=== PATIENT | female | born 1945 | race Caucasian/White ===

== ENCOUNTER → 2016-10-09 | Outpatient (CLI) | payer BC ==
[~2016-10-09] VITALS: Ht 165.1 cm; Wt 87.1 kg
[~2016-10-09] MED LIST: ASPIRIN-LOW81 MG ORAL; ASPIRIN81 MG ORAL; CRESTOR10 M2 ORAL; FEMARA2.5 MG ORAL; HYDROCHLOROTH12.5 MG ORAL; LOSARTAN POTASS50 MG ORAL; METFORMIN HCL500 M1 ORAL; ZANTAC150 MG ORAL
[2016-10-09 14:54] VITALS: BP 150/81
--- NOTE | 2016-10-09 15:29 | GI Initial Consult Note ---
Ballard,Criselda José N.PTana 10/09/16 1529: History of Present Illness General Date patient seen: Oct 09, 2016 Time patient seen: 09:00 Reason for Consultation: REPEAT COLONOSCOPY Present Illness HPI 71 year female patient known to us from previously colonoscopy presents today for repeat colonoscopy for evaluation of colonic polyps. Pt currently has no GI symptoms. NAD. Last colonoscopy with findings as noted below. DATE OF PROCEDURE: 10/25/2013 ENDOSCOPIST: ANDRES PARRA MD SUMMARY OF FINDINGS: 1. Four colonic polyps removed, see above for details. 2. Diverticulosis. 3. Internal hemorrhoids. RECOMMENDATIONS: 1. Follow up biopsy results and treat accordingly. 2. Recommend repeat colonoscopy in three years. Home Meds Reported Medications Ranitidine Hcl* (ZANTAC*) 150 Mg Tablet, 150 MG ORAL PRN, #30 TAB 0 Refills 10/09/16 Losartan Potassium* (LOSARTAN POTASSIUM*) 50 Mg Tablet, 50 MG ORAL DAILY, TAB 10/09/16 Rosuvastatin Calcium* (CRESTOR*) 10 Mg Tablet, 5 MG ORAL DAILY, TAB 10/09/16 Metformin Hcl* (METFORMIN HCL*) 500 Mg Tablet, 1000 MG ORAL TWICE A DAY, TAB 10/09/16 Letrozole (Femara) 2.5 Mg Tab, 2.5 MG ORAL DAILY, #10 TAB 0 Refills 10/19/13 Discontinued Reported Medications Hydrochlorothiazide* (HYDROCHLOROTHIAZIDE*) 12.5 Mg Tablet, 12.5 MG ORAL DAILY, TAB 10/19/13 Med list reviewed/reconciled: Yes Allergies: Coded Allergies: CODEINE (Verified Allergy, Mild, 04/25/09) PROCAINE (Verified Allergy, Mild, 04/25/09) Patient History History Provided By: Patient, Medical Record [facility] Narrative GERD CAD RT breast CA >> RT Lumpectomy Pacemaker placed in 2008 Social History: Reports: smoking - quit Review of Systems All Other Systems: negative except mentioned in HPI Physical Exam Vital Signs Date Time Temp Pulse Resp B/P Pulse Ox O2 Delivery O2 Flow Rate FiO2 10/09/16 14:54 98.1 63 16 150/81 94 Sp02 EP Interpretation: reviewed General Appearance: well appearing, no apparent distress, alert Head: normocephalic EENT: normal ENT inspection Neck: normal inspection, full range of motion, supple Respiratory: normal breath sounds, no respiratory distress Cardiovascular: normal rate Gastrointestinal: normal inspection, non tender, soft Rectal: deferred Genitourinary: no CVA tenderness Musculoskeletal: normal inspection, back normal Neurologic: normal inspection, alert, oriented x3, responsive Psychiatric: normal inspection, judgement/insight normal, memory normal Skin: normal color, no rash, warm/dry Lymphatic: normal inspection, no adenopathy GI: Plan Problems: (1) Colonoscopy planned (2) GERD (gastroesophageal reflux disease) (3) Colonic polyp (4) CAD (coronary artery disease) (5) Breast CA (6) Pacemaker Plan prior auth required for repeat colonoscopy given history of colonic polyps, will contact patient to schedule date - CLD and SUPREP instructions given and acknowledged. - pt to hold ASA 162 one day prior to procedure. cont zantac prn Seen with Dr. Parra. ANDRES PARRA 10/10/16 7768: History of Present Illness Present Illness Home Meds Reported Medications Ranitidine Hcl* (ZANTAC*) 150 Mg Tablet, 150 MG ORAL PRN, #30 TAB 0 Refills 10/09/16 Losartan Potassium* (LOSARTAN POTASSIUM*) 50 Mg Tablet, 50 MG ORAL DAILY, TAB 10/09/16 Rosuvastatin Calcium* (CRESTOR*) 10 Mg Tablet, 5 MG ORAL DAILY, TAB 10/09/16 Metformin Hcl* (METFORMIN HCL*) 500 Mg Tablet, 1000 MG ORAL TWICE A DAY, TAB 10/09/16 Letrozole (Femara) 2.5 Mg Tab, 2.5 MG ORAL DAILY, #10 TAB 0 Refills 10/19/13 Discontinued Reported Medications Hydrochlorothiazide* (HYDROCHLOROTHIAZIDE*) 12.5 Mg Tablet, 12.5 MG ORAL DAILY, TAB 10/19/13 Allergies: Coded Allergies: CODEINE (Verified Allergy, Mild, 04/25/09) PROCAINE (Verified Allergy, Mild, 04/25/09) Patient History Social History Narrative The patient was seen and examined at bedside and all new and available data was reviewed in the patients chart. I agree with the above findings, impression and plan. (Patient seen earlier today. Signature stamp does not reflect patient encounter time.). -Misty Chan MDh José N.PTana Oct 09, 2016 15:29 ANDRES PARRA Oct 10, 2016 15:58
== END | disposition home or self-care (01) ==
LOC: PAN 12:51
DX: K21.9 Gastro-esophageal reflux disease without esophagitis (principal); K63.5 Polyp of colon; I25.10 Atherosclerotic heart disease of native coronary artery without angina pectoris; Z85.3 Personal history of malignant neoplasm of breast; Z95.0 Presence of cardiac pacemaker; Z88.6 Allergy status to analgesic agent; K64.8 Other hemorrhoids; K57.90 Diverticulosis of intestine, part unspecified, without perforation or abscess without bleeding
CPT/HCPCS: 99201

== ENCOUNTER → 2017-01-03 | Day surgery (SDC) | payer BC ==
[2017-01-03] VITALS (7 sets, daily range): BP systolic 117–132; BP diastolic 62–71
[~2017-01-03] VITALS: Ht 165.1 cm; Wt 84.4 kg
[~2017-01-03] MED LIST changes: +Atropine Inj 1mg/10ml Syr IV PRN; +DiphenhydrAMINE 50mg/ml Inj IVP PRN; +Ketorolac 30mg Inj IV PRN; +Ketorolac 60mg Inj IV PRN; +LORazepam Inj 2mg/ml 1ml IV PRN; +LR 1000ml 1,000 ML IVLG SCH; +Labetalol 5mg/ml 20ml vial IV PRN; +Meperidine 25mg/ml Inj IV PRN; +Metoclopramide 10mg/2ml Inj IVP PRN; +Midazolam 2mg/2ml Inj IVP PRN; +fentaNYL 100 mcg/2 mL IV PRN
[2017-01-03 07:35] LABS: THYROID STIMULATING HORMONE 1.59 uIU/mL (0.300-4.500)
--- NOTE | 2017-01-03 08:04 | Pre-Procedure Note/Attestation ---
Pre-Procedure Note/Attestation Complete Prior to Procedure Planned Procedure: not applicable Procedure Narrative: colonoscopy Indications for Procedure Pre-Operative Diagnosis: screening Attestation I attest that I discussed the nature of the procedure; its benefits; risks and complications; and alternatives (and the risks and benefits of such alternatives ), prior to the procedure, with the patient (or the patient's legal in store marketing representative). I attest that, if there was a reasonable possibility of needing a blood transfusion, the patient (or the patient's legal in store marketing representative) was given the [facility] standardized written summary, pursuant to the [employer] Blood Safety Act ([place] Health and Safety Code # 1645, as amended). I attest that I re-evaluated the patient just prior to the surgery and that there has been no change in the patient's H&P, except as documented below: ANDRES BARBA Jan 03, 2017 08:04
--- NOTE | 2017-01-03 08:05 | Short Stay Surgery H&P ---
History of Present Illness History of Present Illness Chief Complaint screening colonoscopy HPI Chio Funes is a 71 year old female who was admitted on for Colon Polyps Patient History Allergies: Coded Allergies: CODEINE (Verified Allergy, Mild, 04/25/09) PROCAINE (Verified Allergy, Mild, 04/25/09) PAST MEDICAL HISTORY: (1) Colonic polyp (2) CAD (coronary artery disease) (3) GERD (gastroesophageal reflux disease) (4) Pacemaker (5) Breast CA Past Surgeries: Social History: Medication History Scheduled Aspirin (Aspirin EC), 162 MG ORAL DAILY, (Reported) Letrozole (Femara), 2.5 MG ORAL DAILY, (Reported) Losartan Potassium* (Losartan Potassium*), 50 MG ORAL DAILY, (Reported) Metformin Hcl* (Metformin Hcl*), 500 MG ORAL TWICE A DAY, (Reported) Ranitidine Hcl* (Zantac*), 150 MG ORAL PRN, (Reported) Rosuvastatin Calcium* (Crestor*), 5 MG ORAL DAILY, (Reported) Review of Systems Cardiovascular: Reports: no symptoms Respiratory: Reports: no symptoms Skeletal: Reports: no symptoms Gastrointestinal: Reports: no symptoms Genitourinary: Reports: no symptoms Neurologic: Reports: no symptoms Endocrine: Reports: no symptoms Hematologic: Reports: no symptoms Physical Exam Vital Signs Last Vital Signs Date Time Temp Pulse Resp B/P Pulse Ox O2 Delivery O2 Flow Rate FiO2 01/03/17 06:17 97.3 63 20 132/71 95 Room Air Labs Laboratory Tests Test 01/03/17 06:50 Carcinoembryonic Antigen 3.4 ng/mL H CA 19-9 Antigen 1.01 U/mL (< 37) Thyroid Stimulating Hormone (TSH) 1.590 uIU/mL (0.300-4.500) Free Thyroxine 1.51 ng/dL (0.86-1.85) Skin: normal HENT: normal Heart: normal Lungs: normal Abdomen: normal Extremities: normal Plan Plan of Care colonoscopy Final Diagnosis: Attestation Are the patient's medical conditions optimized for surgery? Attestation Response: yes ANDRES BARBA Jan 03, 2017 08:05
--- NOTE | 2017-01-03 08:17 | Anethesia Preoperative Eval ---
Anesthesia Pre-op PMH/ROS General Date of Evaluation: Jan 03, 2017 Time of Evaluation: 07:51 Anesthesiologist: Dilcia ASA Score: ASA 3 Mallampati Score Class I : Soft palate, uvula, fauces, pillars visible Class II: Soft palate, uvula, fauces visible Class III: Soft palate, base of uvula visible Class IV: Only hard plate visible Mallampati Classification: Class III Surgeon: Fidel Diagnosis: Abd Pain Surgical Procedure: Colonoscopy Anesthesia History: none Social History: smoking Family History: no anesthesia problems Allergies: Coded Allergies: CODEINE (Verified Allergy, Mild, 04/25/09) PROCAINE (Verified Allergy, Mild, 04/25/09) Medications: see eMAR Past Medical History Cardiovascular: Reports: CAD, HTN, arrhythmia - acemaker, other - HL Pulmonary: Reports: other - moker Gastrointestinal/Genitourinary: Reports: GERD, other - Colon Polyps Endocrine: Reports: DM PSxH Narrative: Multip Coloscopies, R Breast SX Anesthesia Pre-op Phys. Exam Physician Exam Last Vital Signs Date Time Temp Pulse Resp B/P Pulse Ox O2 Delivery O2 Flow Rate FiO2 01/03/17 06:17 97.3 63 20 132/71 95 Room Air Constitutional: NAD Neurologic: CN 2-12 intact Cardiovascular: RRR Respiratory: CTA Gastrointestinal: S/NT/ND Airway Exam Mallampati Score: Class III MO: limited ROM: limited Teeth: intact Anesthesia Pre-op A/P Labs Chemistry Test 01/03/17 06:50 Carcinoembryonic Antigen 3.4 ng/mL H CA 19-9 Antigen 1.01 U/mL (< 37) Thyroid Stimulating Hormone (TSH) 1.590 uIU/mL (0.300-4.500) Free Thyroxine 1.51 ng/dL (0.86-1.85) Risk Assessment & Plan Assessment: ASA 3 Plan: GA Status Change Before Surgery: Oj Henry MD Jan 03, 2017 08:17
--- NOTE | 2017-01-03 08:19 | Immediate Post-Op Evaluation ---
Immediate Post-Op Evalulation Immediate Post-Op Evalulation Procedure: Colonoscopy Date of Evaluation: Jan 03, 2017 Time of Evaluation: 08:44 IV Fluids: 600 LR Blood Products: 0 Estimated Blood Loss: 1 Urinary Output: 0 Blood Pressure Systolic: 123 Blood Pressure Diastolic: 63 Pulse Rate: 60 Respiratory Rate: 16 O2 Sat by Pulse Oximetry: 96 Temperature (Fahrenheit): 97.1 Pain Score (1-10): 2 Nausea: No Vomiting: No Complications 0 Patient Status: awake, reacts, patent, none Hydration Status: adequate Oj Ha MD Jan 03, 2017 08:19
--- NOTE | 2017-01-03 08:20 | 48 Hour Post Anesthesia Eval ---
Post Anesthesia Evaluation Procedure: Colonoscopy Date of Evaluation: Jan 03, 2017 Time of Evaluation: 10:53 Blood Pressure Systolic: 146 0: 78 Pulse Rate: 60 Respiratory Rate: 16 Temperature (Fahrenheit): 98.2 O2 Sat by Pulse Oximetry: 97 Airway: patent Nausea: No Vomiting: No Pain Intensity: 0 Hydration Status: adequate Cardiopulmonary Status: Stable Mental Status/LOC: patient returned to baseline Follow-up Care/Observations: 0 Post-Anesthesia Complications: 0 Follow-up care needed: ready to discharge Oj Ha MD Jan 03, 2017 08:20
--- NOTE | 2017-01-03 08:29 | Endoscopy Procedure Note ---
Endoscopy Procedure Note Indication for Procedure: screening Procedures Performed: colonoscopy Operative Findings/Diagnosis: one polyp Specimen: yes Pt Tolerated Procedure Well: Yes Estimated Blood Loss: none Anesthesiologist: guanako Anesthesia: MAC Implant(s) used?: No 50 yrs or older w/o bx or poly: No 10yrs. F/U not recommended: Yes If not recommended, why?: Above average risk 10 yrs. F/U needed: Yes 18 years or older w/prev. colo: Yes <3yrs. since last colonoscopy: No ANDRES BARBA Jan 03, 2017 08:29
--- NOTE | 2017-01-03 16:38 | Procedure Note ---
DATE OF PROCEDURE: 01/03/2017 SURGEON: Bola Parra M.D. PROCEDURE: Colonoscopy with biopsy. ANESTHESIOLOGIST: Oj Ha M.D. INSTRUMENT: Olympus adult flexible colonoscope. INDICATION: 1. History of colonic polyps. 2. Screening colonoscopy. REASON FOR PROCEDURE: The procedure, risks, benefits, and possible consequences, including hemorrhage, aspiration, perforation and infection, and alternative treatments, were explained to the patient/legal guardian by Dr. Bola Parra and the patient/legal guardian understood and accepted these risks. DESCRIPTION OF PROCEDURE: After informed consent was obtained and the patient was adequately sedated, first rectal examination was performed, which was normal. Then, the scope was advanced from the rectum into the cecum documented by appendiceal orifice, ileocecal valve, and right upper quadrant palpation. Quality of prep overall was good. The patient has significant diverticulosis throughout the colon. There was one polyp in the transverse colon, measured roughly about 4 mm. This polyp was removed with the cold biopsy forceps technique. Retroflexion of rectum showed evidence of internal hemorrhoids. SUMMARY OF FINDINGS: 1. One colonic polyp removed, see above for details. 2. Internal hemorrhoids. 3. Significant diverticulosis. RECOMMENDATIONS: 1. Follow up biopsy results and treat accordingly. 2. Recommend repeat colonoscopy in five years. Bola Parra M.D. DR: DARIN JOB#: [id number] CC:
--- NOTE | 2017-01-08 16:23 | Cardiology Report ---
APPROVED REPORT EKG Measurement Heart [id number] [place] [id number] Sinus rhythm with 1st degree AV block Otherwise normal ECG
== END | disposition home or self-care (01) ==
LOC: GAS 05:34
DX: Z12.11 Encounter for screening for malignant neoplasm of colon (principal); Z86.010 Personal history of colon polyps; D12.3 Benign neoplasm of transverse colon; K64.8 Other hemorrhoids; K57.30 Diverticulosis of large intestine without perforation or abscess without bleeding; I25.10 Atherosclerotic heart disease of native coronary artery without angina pectoris; K21.9 Gastro-esophageal reflux disease without esophagitis; E11.9 Type 2 diabetes mellitus without complications; I10 Essential (primary) hypertension; E78.5 Hyperlipidemia, unspecified; F17.200 Nicotine dependence, unspecified, uncomplicated; Z85.3 Personal history of malignant neoplasm of breast; Z95.0 Presence of cardiac pacemaker; Z79.84 Long term (current) use of oral hypoglycemic drugs; Z79.82 Long term (current) use of aspirin; Z88.4 Allergy status to anesthetic agent; Z88.5 Allergy status to narcotic agent
CPT/HCPCS: 36415; 82378; 82962; 84439; 84443; 86301; 93005; 94003; 94150

== ENCOUNTER 2017-01-29 12:52 | Outpatient (CLI) | payer BC ==
[~2017-01-29 12:52] MED LIST changes: -Atropine Inj 1mg/10ml Syr IV PRN; -DiphenhydrAMINE 50mg/ml Inj IVP PRN; -Ketorolac 30mg Inj IV PRN; -Ketorolac 60mg Inj IV PRN; -LORazepam Inj 2mg/ml 1ml IV PRN; -LR 1000ml 1,000 ML IVLG SCH; -Labetalol 5mg/ml 20ml vial IV PRN; -Meperidine 25mg/ml Inj IV PRN; -Metoclopramide 10mg/2ml Inj IVP PRN; -Midazolam 2mg/2ml Inj IVP PRN; -fentaNYL 100 mcg/2 mL IV PRN
--- NOTE | 2017-01-29 14:00 | GI Progress Note ---
Assessment/Plan Problems: (1) GERD (gastroesophageal reflux disease) ICD Codes: K21.9 - Gastro-esophageal reflux disease without esophagitis SNOMED: 754654219 (2) CAD (coronary artery disease) ICD Codes: I25.10 - Atherosclerotic heart disease of [place] coronary artery without angina pectoris SNOMED: 04510644 (3) Colonic polyp ICD Codes: K63.5 - Polyp of colon SNOMED: 93871651 Status: stable Status Narrative Discussed with Dr. Parra. Assessment/Plan RECOMMENDATIONS: 1. Follow up biopsy results and treat accordingly. 2. Recommend repeat colonoscopy in five years. 3. RTC PRN Subjective Gastrointestinal/Abdominal: Reports: no symptoms Objective T 97.5 BP 156/85 P 59 95 RA Denies weight loss General Appearance: no apparent distress, alert Cardiovascular: normal rate Respiratory/Chest: normal breath sounds, no respiratory distress Abdominal Exam: normal bowel sounds, non tender, soft Extremities: normal range of motion Objective DATE OF PROCEDURE: 01/03/2017 SURGEON: Bola Parra M.D. INDICATION: 1. History of colonic polyps. 2. Screening colonoscopy. SUMMARY OF FINDINGS: 1. One colonic polyp removed, see above for details. 2. Internal hemorrhoids. 3. Significant diverticulosis. Criselda Ballard N.P. January 29, 2017 14:00
[2017-01-29 14:20] VITALS: BP 156/85
== END 2017-01-29 15:00 | disposition home or self-care (01) ==
LOC: PAN 12:52
DX: K21.9 Gastro-esophageal reflux disease without esophagitis (principal); I25.10 Atherosclerotic heart disease of native coronary artery without angina pectoris; K63.5 Polyp of colon
CPT/HCPCS: 99211

== ENCOUNTER 2020-11-13 12:37 | Outpatient (CLI) | payer BC ==
[~2020-11-13] VITALS: Ht 165.1 cm; Wt 77.1 kg
[2020-11-13 13:00] VITALS: BP 171/86
[2020-11-13] MEDS ORDERED: METFORMIN HCL500 M1 ORAL (13:03)
[2020-11-13] MEDS ORDERED: LOSARTAN POTASS25 MG ORAL (13:03)
--- NOTE | 2020-11-15 09:29 | Consultation ---
DATE OF CONSULTATION: 11/13/2020 CHIEF COMPLAINT: Constipation, GERD, rectal bleeding, nausea. HISTORY OF PRESENT ILLNESS: This is a very pleasant 75-year-old female working at [employer]. The patient has history of diabetes, history of colonic polyps, gastritis, GERD admitted to our office for followup and complained of the new onset of constipation, GERD, and rectal bleeding. PAST MEDICAL HISTORY: 1. Diabetes. 2. Hypercholesteremia. 3. History of pacemaker placement. 4. History of colonic polyp. 5. Gastritis. 6. History of breast cancer. 7. History of diverticulosis. 8. Coronary artery disease. PAST SURGICAL HISTORY: The patient has history of pacemaker placement, history of right breast mastectomy. ALLERGIES: To codeine and . MEDICATIONS: Please see medication reconciliation list. SOCIAL HISTORY: The patient denies any tobacco, alcohol, or drug use. FAMILY HISTORY: Noncontributory. REVIEW OF SYSTEMS: Review of systems was positive as dictated in HPI. PHYSICAL EXAMINATION: VITAL SIGNS: Temperature 97, blood pressure 110/86, pulse 60, respirations 20. HEENT: Normocephalic and atraumatic. Sclerae anicteric. NECK: Supple. No evidence of obvious lymphadenopathy. CARDIOVASCULAR: The patient evidence of pacemaker in the left upper chest. Regular rate and rhythm. Plus S1 and S2. LUNGS: Decreased breath sounds bilaterally based on supine exam. ABDOMEN: Soft and nontender. No rebound. No guarding. No peritoneal sign. EXTREMITIES: No cyanosis, no clubbing, no edema. ASSESSMENT AND PLAN: This is a 75-year-old female with new onset of constipation, rectal bleeding, complained of GERD and nausea, prior history of colonic polyps. The patient would benefit from endoscopy and colonoscopy for evaluation of above symptoms. The patient was given instruction for both. Prep was explained to her. Plan to schedule as soon as authorization is obtained. Bola Parra M.D. DR: [place] JOB#: [id number] CC:
== END 2020-11-13 14:37 | disposition home or self-care (01) ==
LOC: PAN 12:37
DX: K59.00 Constipation, unspecified (principal); K21.9 Gastro-esophageal reflux disease without esophagitis; K62.5 Hemorrhage of anus and rectum; R11.0 Nausea; E11.9 Type 2 diabetes mellitus without complications; E78.00 Pure hypercholesterolemia, unspecified; Z95.0 Presence of cardiac pacemaker; Z86.010 Personal history of colon polyps; Z85.3 Personal history of malignant neoplasm of breast; Z88.6 Allergy status to analgesic agent
CPT/HCPCS: 99212

== ENCOUNTER 2020-11-29 07:59 | Day surgery (SDC) | payer BC ==
[2020-11-29] VITALS (8 sets, daily range): BP systolic 141–158; BP diastolic 68–88
[~2020-11-29] VITALS: Ht 163.8 cm; Wt 74.8 kg
[~2020-11-29 07:59] MED LIST changes: +FAMOTIDINE20 MG ORAL; +LOSARTAN POTASS25 MG ORAL
[2020-11-29] MEDS ORDERED: LR 1000ml 1,000 ML IVLG SCH ×2 (08:00→09:45)
--- NOTE | 2020-11-29 09:22 | Pre-Procedure Note/Attestation ---
Pre-Procedure Note/Attestation Complete Prior to Procedure Planned Procedure: not applicable Procedure Narrative: esophagogastroduodenoscopy and colonoscopy Indications for Procedure Pre-Operative Diagnosis: GERD screening colon Attestation I attest that I discussed the nature of the procedure; its benefits; risks and complications; and alternatives (and the risks and benefits of such alt ernatives), prior to the procedure, with the patient (or the patient's legal technical account representative). I attest that, if there was a reasonable possibility of needing a blood transfusion, the patient (or the patient's legal technical account representative) was given the [facility] standardized written summary, pursuant to the [employer] [place] Blood Safety Act ([place] Health and Safety Code # 1645, as amended). I attest that I re-evaluated the patient just prior to the surgery and that there has been no change in the patient's H&P, except as documented below: Bola Parra MD Nov 29, 2020 09:22
--- NOTE | 2020-11-29 09:22 | Short Stay Surgery H&P ---
History of Present Illness History of Present Illness Chief Complaint see office note HPI Chio Funes is a 75 year old female who was admitted on for Polyps,Gerd Patient History Allergies: Coded Allergies: PROCAINE (Verified Allergy, Severe, rash, 11/27/20) CODEINE (Verified Allergy, Intermediate, rash, 11/27/20) Medication History Scheduled Aspirin (Aspirin EC), 162 MG ORAL DAILY, (Reported) Famotidine* (Pepcid 20mg tablet*), 10 MG ORAL NEEDED, (Reported) Letrozole (Femara), 2.5 MG ORAL DAILY, (Reported) Losartan Potassium* (Losartan Potassium*), 12.5 MG ORAL DAILY, (Reported) Metformin Hcl* (Metformin Hcl*), 1,000 MG ORAL DAILY, (Reported) Rosuvastatin Calcium* (Crestor*), 10 MG ORAL DAILY, (Reported) Discontinued Medications Ranitidine Hcl* (Zantac*), 150 MG ORAL PRN, (Reported) Discontinued Reason: Pt stopped taking med Physical Exam Vital Signs Last Vital Signs Date Time Temp Pulse Resp B/P (MAP) Pulse Ox O2 Delivery O2 Flow Rate FiO2 11/29/20 08:25 Room Air 11/29/20 08:25 98.2 66 18 141/72 100 Plan Attestation Are the patient's medical conditions optimized for surgery? Bola Parra MD Nov 29, 2020 09:22
--- NOTE | 2020-11-29 09:44 | Anethesia Preoperative Eval ---
Anesthesia Pre-op PMH/ROS General Date of Evaluation: Nov 29, 2020 Time of Evaluation: 09:49 Anesthesiologist: Dilcia ASA Score: ASA 3 Mallampati Score Class I : Soft palate, uvula, fauces, pillars visible Class II: Soft palate, uvula, fauces visible Class III: Soft palate, base of uvula visible Class IV: Only hard plate visible Mallampati Classification: Class III Surgeon: Fidel Diagnosis: Abd Pain Surgical Procedure: EGD/Colonoscopy Anesthesia History: none Social History: smoking Family History: no anesthesia problems Allergies: Coded Allergies: PROCAINE (Verified Allergy, Severe, rash, 11/27/20) CODEINE (Verified Allergy, Intermediate, rash, 11/27/20) Medications: see eMAR Patient NPO?: Yes Past Medical History Cardiovascular: Reports: HTN, CAD, arrhythmia - Pacemaker, other - HL Gastrointestinal/Genitourinary: Reports: GERD, other - Diverticulosis Endocrine: Reports: DM Hematology/Immune: Reports: other - R Breast CA Other: obesity - BMI 32 PSxH Narrative: R Breast Sx Anesthesia Pre-op Phys. Exam Physician Exam Last Vital Signs Date Time Temp Pulse Resp B/P (MAP) Pulse Ox O2 Delivery O2 Flow Rate FiO2 11/29/20 08:25 Room Air 11/29/20 08:25 98.2 66 18 141/72 100 Constitutional: NAD Neurologic: CN 2-12 intact Cardiovascular: RRR Respiratory: CTA Gastrointestinal: S/NT/ND Airway Exam Mallampati Score: Class III MO: limited ROM: limited Teeth: missing Anesthesia Pre-op A/P Risk Assessment & Plan Assessment: ASA 3 Plan: TIVA Status Change Before Surgery: Oj Henry MD Nov 29, 2020 09:44
[2020-11-29] MEDS ORDERED: Meperidine 25mg/1ml Inj (FOR RIGORS ONLY) IV PRN (09:45)
[2020-11-29] MEDS ORDERED: Atropine Sulfate 0.4mg/ml inj IVP PRN (09:45)
[2020-11-29] MEDS ORDERED: Midazolam 2mg/2ml Inj IVP PRN (09:45)
[2020-11-29] MEDS ORDERED: LORazepam Inj 2mg/ml 1ml IV PRN (09:45)
[2020-11-29] MEDS ORDERED: Metoclopramide 10mg/2ml Inj IVP PRN (09:45)
[2020-11-29] MEDS ORDERED: Labetalol 5mg/ml 20ml vial IV PRN (09:45)
[2020-11-29] MEDS ORDERED: DiphenhydrAMINE 50mg/ml Inj IVP PRN (09:45)
[2020-11-29] MEDS ORDERED: fentaNYL 100 mcg/2 mL IV PRN (09:45)
[2020-11-29] MEDS ORDERED: Ketorolac 30mg Inj IV PRN ×2 (09:45)
--- NOTE | 2020-11-29 09:45 | 48 Hour Post Anesthesia Eval ---
Post Anesthesia Evaluation Procedure: EGD/Colonoscopy Date of Evaluation: Nov 29, 2020 Time of Evaluation: 13:12 Blood Pressure Systolic: 162 0: 89 Pulse Rate: 64 Respiratory Rate: 18 Temperature (Fahrenheit): 98 O2 Sat by Pulse Oximetry: 97 Airway: patent Nausea: No Vomiting: No Pain Intensity: 1 Hydration Status: adequate Cardiopulmonary Status: Stable Mental Status/LOC: patient returned to baseline Follow-up Care/Observations: 0 Post-Anesthesia Complications: 0 Follow-up care needed: ready to discharge Oj Ha MD Nov 29, 2020 09:45
--- NOTE | 2020-11-29 09:45 | Immediate Post-Op Evaluation ---
Immediate Post-Op Evalulation Immediate Post-Op Evalulation Procedure: EGD/Colonoscopy Date of Evaluation: Nov 29, 2020 Time of Evaluation: 10:48 IV Fluids: 700 LR Blood Products: 0 Estimated Blood Loss: 1 Urinary Output: 0 Blood Pressure Systolic: 153 Blood Pressure Diastolic: 73 Pulse Rate: 66 Respiratory Rate: 16 O2 Sat by Pulse Oximetry: 99 Temperature (Fahrenheit): 97.5 Pain Score (1-10): 1 Nausea: No Vomiting: No Complications 0 Patient Status: awake, reacts, patent, none Hydration Status: adequate Oj Ha MD Nov 29, 2020 09:45
--- NOTE | 2020-11-29 09:53 | Endoscopy Procedure Note ---
Endoscopy Procedure Note General Indication for Procedure: screening colon, GERD Procedures Performed: EGD, colonoscopy Operative Findings/Diagnosis: gastritis, hemorrhoids Specimen: yes Pt Tolerated Procedure Well: Yes Estimated Blood Loss: none Anesthesia Anesthesiologist: jean Anesthesia: MAC Inserted Devices Implant(s) used?: No Quality Quality of Bowel Preparation: Good Did scope reach the cecum?: Yes Was there any complications?: No GI Core Measures 50 yrs or older w/o bx or poly: No 10yrs. F/U recommended: Yes 18 years or older w/prev. colo: Yes <3yrs. since last colonoscopy: No Bola Parra MD Nov 29, 2020 09:53
[2020-11-29] MEDS ORDERED: LR 1000ml ONE (10:00)
[2020-11-29] MEDS ORDERED: Lidocaine 1% MPF 10mg/ml 5ml ONE (10:00)
--- NOTE | 2020-11-29 10:59 | Procedure Note ---
DATE OF PROCEDURE: 11/29/2020 SURGEON: Bola Parra MD. PROCEDURE: Upper endoscopy with biopsy and colonoscopy. ANESTHESIA: Per Dr. Bro. INSTRUMENT: Olympus adult flexible upper endoscope and colonoscope. INDICATION: Chronic GERD and also screening colonoscopy. REASON FOR PROCEDURE: The procedure, risks, benefits, and possible consequences, including hemorrhage, aspiration, perforation and infection, and alternative treatments, were explained to the patient/legal guardian by Dr. Bola Parra and the patient/legal guardian understood and accepted these risks. PROCEDURE IN DETAIL: After informed consent was obtained and the patient was adequately sedated, Olympus upper endoscope was advanced from mouth into the second portion of the duodenum and retroflexion was performed in the stomach. The patient had evidence of diffuse atrophic gastritis. Random biopsy from antrum and body was obtained to rule out H. pylori infection. The patient also has small inlet patch in the upper esophagus. No obvious esophagitis. No gastric mass. No gastric ulceration. At this time, the upper endoscope was retrieved and the patient was turned over for colonoscopy. First, rectal examination was performed which was positive for internal hemorrhoids. Then the scope was advanced from the rectum into the cecum documented by appendiceal orifice, ileocecal valve, and right upper quadrant palpation. Quality of prep was fair. Examination of the left colon somehow was limited given this prep. No obvious polyp or mass was seen in this colonoscopy. The patient has evidence of diverticulosis both in the right and the left colon but more prominent in the left colon. No obvious diverticulitis. Retroflexion of rectum showed evidence of medium-sized nonbleeding internal hemorrhoids. The patient tolerated the procedure well without any complication. SUMMARY OF FINDINGS: 1. Atrophic gastritis, status post biopsy. 2. Small inlet patch. 3. Diverticulosis of the both right and left colon. 4. Internal hemorrhoids. RECOMMENDATIONS: 1. Follow path. 2. Given this prep, we recommend repeat colonoscopy in 5 years. Bola Parra M.D. DR: [place] JOB#: [id number] CC:
--- NOTE | 2020-12-01 15:26 | Cardiology Report ---
APPROVED REPORT EKG Measurement Heart [id number] SD 262P51 [id number] <Conclusion> Atrial-paced rhythm with prolonged AV conduction Abnormal ECG
== END 2020-11-29 12:00 | disposition home or self-care (01) ==
LOC: GAS 07:59
DX: Z12.11 Encounter for screening for malignant neoplasm of colon (principal); K21.9 Gastro-esophageal reflux disease without esophagitis; K29.40 Chronic atrophic gastritis without bleeding; K57.90 Diverticulosis of intestine, part unspecified, without perforation or abscess without bleeding; K64.8 Other hemorrhoids; Z88.6 Allergy status to analgesic agent; Z79.82 Long term (current) use of aspirin; Z79.899 Other long term (current) drug therapy; Z79.84 Long term (current) use of oral hypoglycemic drugs; F17.200 Nicotine dependence, unspecified, uncomplicated; I11.9 Hypertensive heart disease without heart failure; I25.10 Atherosclerotic heart disease of native coronary artery without angina pectoris; Z95.0 Presence of cardiac pacemaker; E11.9 Type 2 diabetes mellitus without complications; E78.5 Hyperlipidemia, unspecified; Z85.3 Personal history of malignant neoplasm of breast; E66.9 Obesity, unspecified; Z68.27 Body mass index [BMI] 27.0-27.9, adult
CPT/HCPCS: 43239; 45378; 93005; 94003; J2704; J7120; U0004; 94150